=== PATIENT | female | born 1945 | race Two or more races ===

== ENCOUNTER 2020-04-29 18:23 | Inpatient (IN) | payer MEDICAID ==
[~2020-04-29] VITALS: Ht 165.1 cm; Wt 93.9 kg
--- NOTE | 2020-04-29 20:30 | NUR ---
RN OPENING NOTE PT ARRIVED TO UNIT VIA GURNEY ACCOMPANIED WITH 2 [employer] OFFICER. PT IS A/O X4. PT IS AMBULATORY. PT IS ON RM SATING ABOVE 96%. PT HAS UNLABORED BREATHING. SAFETY MEASURES IN PLACE CALL LIGHT IN REACH, BED AT LOWEST POSITION, SIDE RAILS UP X2. WILL CONTINUE TO MONITOR.
[2020-04-29 21:00] VITALS: BP 163/91
[2020-04-29] MEDS ORDERED: ZOLPIDEM TARTRATE 5 MG TABLET PO PRN (22:30)
[2020-04-29] MEDS ORDERED: Z GUARD REMEDY 2 OZ OINT TP PRN (22:30)
[2020-04-29] MEDS ORDERED: ONDANSETRON HCL/PF 4 MG/2 ML VIAL IVP PRN (22:30)
[2020-04-29] MEDS ORDERED: HYDROCODONE/APAP 5/325MG TABLET PO PRN (22:30)
[2020-04-29] MEDS ORDERED: MAGNESIUM HYDROXIDE 30 ML UDC PO PRN (22:30)
[2020-04-29] MEDS ORDERED: MAG HYDROX/AL HYDROX/SIMETH 30 ML UDC PO PRN (22:30)
[2020-04-29] MEDS: IV NS 0.9% 1,000 ML IV PRN (23:50)
[2020-04-30] VITALS: BP 158/82
[2020-04-30] MEDS ORDERED: DEXTROSE 50%-WATER 50 ML DISP.SYRIN IV PRN
[2020-04-30] MEDS ORDERED: *INSULIN REGULAR(HUMULIN R)HUM 100 UNIT/ML VIAL SQ PRN
[2020-04-30] MEDS: ACETAMINOPHEN 325 MG TABLET PO PRN ×3 (00:07→18:00)
[2020-04-30 04:00] VITALS: BP 147/70
--- NOTE | 2020-04-30 05:45 | NUR ---
RN NOTE PT FELL IN THE RESTROOM. PRIOR TO THE FALL, EDUCATED PT WITH RETURNED DEMONSTRATION HOW TO USE THE CALL LIGHT FOR ANY HELP. ENCOURAGED PT TO CALL FOR BATHROOM NEEDS, NON SKID SOCKS WERE ON. FOUND PT LAYING DOWN ON THE FLOOR. FAMILY MEMBER NOTIFIED OF THE INCIDENT. REDNESS PRESENT AT THE LEFT UPPER BACK , PHOTO TAKEN. FALL PRECAUTION PROVIDED. DOCTOR Lennox CALLED AND CT WITHOUT CONTRAST ORDERED.
--- NOTE | 2020-04-30 06:14 | NUR ---
ROCK CRUSHING MACHINE OPERATOR NOTE DR ADDISON INFORMED ABOUT PT'S FALL AND C/O MINOR HEAD PAIN IN THE BACK. MD GAVE NEW ORDER, ORDER NOTED AND CARRIED OUT. ALSO INFORMED NURSING BUS INSPECTOR.
[2020-04-30 06:25] LABS: BASOPHILS % (AUTO) 0.5 % (0.0-2.0); EOSINOPHILS % (AUTO) 0.1 % (0.0-6.0); HEMATOCRIT 42 % (33-45); HEMOGLOBIN 13.7 g/dL (11.5-14.8); LYMPHOCYTES # (AUTO) 1.3 /CMM (0.8-4.8); LYMPHOCYTES % (AUTO) 13.5 % (20.0-44.0); MEAN CORPUSCULAR HGB CONC 33 g/dl (31.0-36.0); MEAN CORPUSCULAR VOLUME 90 fL (82-100); MONOCYTES # (AUTO) 0.7 /CMM (0.1-1.30); MONOCYTES % (AUTO) 7.2 % (2.0-12.0); NEUTROPHILS # (AUTO) 7.8 /CMM (1.8-8.9); NEUTROPHILS % (AUTO) 78.7 % (43.0-81.0); PLATELET COUNT (AUTO) 267 /CMM (150-450); RED BLOOD CELL COUNT(AUTO) 4.71 MIL/uL (4.0-5.2)
[2020-04-30 06:35] LABS: CALCIUM, SERUM 8.6 mg/dL (8.5-10.1); MAGNESIUM 1.8 mg/dL (1.8-2.4); PHOSPHORUS 2.6 mg/dL (2.5-4.9); POTASSIUM 3.5 mmol/L (3.5-5.1)
[2020-04-30 06:40] LABS: THYROID STIMULATING HORMONE 3.143 uIU/mL (0.358-3.74)
--- NOTE | 2020-04-30 07:00 | NUR ---
LEATHER POLISHER NOTE FAMILY INFORMED REGARDING THE PT FALL.
--- NOTE | 2020-04-30 07:25 | NUR ---
RN CLOSING NOTE PT REMAINED STABLE. REPORT GIVEN TO INCOMING SHIFT FOR ONEL.
[2020-04-30] MEDS: BLOOD SUGAR DIAGNOSTIC 1 EACH STRIP VI SCH ×4 (07:30→22:29)
[2020-04-30 08:00] VITALS: BP 145/76
--- NOTE | 2020-04-30 08:00 | NUR ---
patient received in bed skin w/d color good resp unlabored no sob noted vitals taken and recorded iv infusing well with no signs of redness or swelling noted patient encouraged use of call light to make all needs known will continue to assess and evaluate accucheck done and recorded blood sugar 412 coverage given 15 units /sq as ordered will continue to assess and evaluate Dr. Ruano was notified
[2020-04-30] MEDS: ENOXAPARIN SODIUM 40 MG/0.4 ML DISP.SYRIN SQ SCH (08:24)
[2020-04-30] MEDS: INSULIN REGULAR, HUMAN 100 UNIT/ML 3 ML VIAL SQ PRN ×4 (08:39→22:34)
[2020-04-30] MEDS ORDERED: CEFTRIAXONE 1 G in IV D5W 50 ML IV SCH (09:00)
[2020-04-30] MEDS ORDERED: GLYB5TAB7 PO (09:32)
[2020-04-30] MEDS ORDERED: NIFE-35 PO (09:32)
[2020-04-30] MEDS ORDERED: METF-441 PO (09:32)
[2020-04-30] MEDS ORDERED: ASPI-1169 PO (09:32)
[2020-04-30] MEDS ORDERED: CARB200T39 PO (09:32)
--- NOTE | 2020-04-30 09:48 | NUR ---
up to bathroom and voided well and recorded
--- NOTE | 2020-04-30 11:30 | NUR ---
DORIS RN NOTES RECEIVED REPORT FROM CHARGE NURSE SOON. PT IS AWAKE , ALERT AND ORIENTED X3 TURKS AND [place] ISLANDER SPEAKING.ON R/A .PT HAS R HAND #22G IS FLUSHING WEEL, INTACT AND NO INFILTRATION NOTED. COVID TEST IS PENDING. SAFETY MEASUREMENTS ARE IMPLEMENTED. CALL LIGHT WITHIN REACH. WILL CONTINUE TO MONITOR
[2020-04-30 12:00] VITALS: BP 133/80
[2020-04-30 16:00] VITALS: BP 140/82
--- NOTE | 2020-04-30 17:50 | NUR ---
DORIS VAULT MANAGER NOTE PT HAS A FEVER OF 101.3. TYLENOL WAS GIVEN AND COOLING MEASUREMENTS WERE TAKEN. GOING TO RETAKE THE TEM-RE
--- NOTE | 2020-04-30 18:52 | NUR ---
DORIS/ TELE CLOSING RN NOTES PT IS RESTING AND AWAKE , ALERT AND ORIENTED X3 VIETNAMESE SPEAKING.ON R/A SATURATING WELL .PT HAS R HAND #22G IS FLUSHING WELL, INTACT AND NO INFILTRATION NOTED. COVID TEST IS STILL PENDING. NO SIGN OF ACUTE RESPIRATORY DISTRESS IS NOTED. SAFETY MEASUREMENTS ARE IMPLEMENTED. CALL LIGHT WITHIN REACH. WILL ENDORSE TO NIGHTSHIFT MLEODY
--- NOTE | 2020-04-30 19:10 | NUR ---
RN OPENING NOTES: Rec'd pt in bed, A&Ox3, Icelandic speaking only. On room air, O2 WNL. No SOB or resp distress noted. On isolation for R/O Covid. SR on tele monitor. Ambulatory to bedside commode w/ assist. RH #22 patent and flushed. Dressing c/d/i. NS infusing at 75ml/hr, tolerating well. Safety measures in place. Will continue to monitor.
[2020-04-30 20:00] VITALS: BP 127/54
[2020-04-30] MEDS: IV NS 0.9% 1,000 ML IV PRN (20:58)
[2020-04-30] MEDS ORDERED: PIPERACILLIN /TAZOBACTAM 3.375 G in IV D5W 50 ML IV SCH (21:00)
[2020-05-01] VITALS: BP 146/80
--- NOTE | 2020-05-01 | NUR ---
RN NOTE: Pt stated she would like a bed bath at 0600. Wishes noted.
[2020-05-01] MEDS: ACETAMINOPHEN 325 MG TABLET PO PRN ×2 (00:30→20:17)
--- NOTE | 2020-05-01 00:30 | NUR ---
RN NOTE PT HAD A TEMP OF 101.0 GAVE 650 MG PRN PO PER DOCTOR ORDER. WILL CONTINUE TO MONITOR.
[2020-05-01 04:00] VITALS: BP_SYST 154; BP_SYST 157; BP_DIAS 67; BP_DIAS 76
[2020-05-01 04:26] LABS: BASOPHILS # (AUTO) 0.1 /CMM (0.0-0.2); EOSINOPHILS % (AUTO) 0.4 % (0.0-6.0); HEMATOCRIT 40 % (33-45); LYMPHOCYTES # (AUTO) 1.2 /CMM (0.8-4.8); LYMPHOCYTES % (AUTO) 18.3 % (20.0-44.0); MEAN CORPUSCULAR HGB CONC 33 g/dl (31.0-36.0); MEAN CORPUSCULAR VOLUME 89 fL (82-100); MONOCYTES # (AUTO) 0.7 /CMM (0.1-1.30); MONOCYTES % (AUTO) 11.2 % (2.0-12.0); NEUTROPHILS # (AUTO) 4.3 /CMM (1.8-8.9); NEUTROPHILS % (AUTO) 69.1 % (43.0-81.0); PLATELET COUNT (AUTO) 248 /CMM (150-450); RED BLOOD CELL COUNT(AUTO) 4.44 MIL/uL (4.0-5.2); WHITE BLOOD COUNT (AUTO) 6.3 K/uL (4.3-11.0)
[2020-05-01 04:58] LABS: CALCIUM, SERUM 7.8 mg/dL (8.5-10.1); CARBON DIOXIDE 26 mmol/L (21-32); CHLORIDE 101 mmol/L (98-107); CREATININE 1.1 mg/dL (0.6-1.3); GLUCOSE 225 mg/dL (74-106); MAGNESIUM 1.9 mg/dL (1.8-2.4); PHOSPHORUS 3.1 mg/dL (2.5-4.9); POTASSIUM 4.1 mmol/L (3.5-5.1); SODIUM SERUM 138 mmol/L (136-145); UREA NITROGEN, BLOOD 14 mg/dL (7-18)
[2020-05-01] MEDS: PIPERACILLIN /TAZOBACTAM 3.375 G in IV D5W 100 ML IV SCH ×3 (05:13→20:44)
--- NOTE | 2020-05-01 06:40 | NUR ---
RN CLOSING NOTE PT CURRENTLY ASLEEP, RESTING IN BED. TELE MONITOR PRESENTS SR. VSS. NO SOB OR RESPIRATORY DISTRESS AT THIS TIME. ALBANIAN SPEAKING, GUN BARREL FINISHER USED. BED IS LOCKED IN LOWEST POSITION, BED ALARM ON. CALL LIGHT WITHIN IN BERNADINE. NEEDS ATTENDED. PT ORIGINALLY REQUESTED BED BATH, WENT INTO ROOM PT ASLEEP AT 0600. WILL ENDORSE ONCOMING NURSE FOR CONTINUATION OF CARE.
[2020-05-01 08:00] VITALS: BP 144/76
--- NOTE | 2020-05-01 08:00 | NUR ---
PRESS PULLER NOTE. PATIENT IN BED ALL NEEDS ATTENDED SPEAKS PASHTO , BED IN LOWEST AND LOCKED POSITION, ON RA NO SOB NOTED AT THIS TIME , ON TELE MONITOR SR , RT HAND HL INTACT AND FLUSHED WELL WILL CONT TO MONITOR
[2020-05-01] MEDS: ENOXAPARIN SODIUM 40 MG/0.4 ML DISP.SYRIN SQ SCH (08:23)
[2020-05-01] MEDS: BLOOD SUGAR DIAGNOSTIC 1 EACH STRIP VI SCH ×4 (08:24→22:43)
[2020-05-01] MEDS: INSULIN REGULAR, HUMAN 100 UNIT/ML 3 ML VIAL SQ PRN ×4 (08:25→22:43)
--- NOTE | 2020-05-01 10:06 | NUR ---
SENIOR INSIGHT MANAGER INTERNATIONAL NOTE DR BAIRES AT BEDSIDE SPOKE WITH FAMILY THROUGH PHONE
[2020-05-01] MEDS: IV NS 0.9% 1,000 ML IV PRN ×2 (11:07→20:44)
[2020-05-01 12:00] VITALS: BP 155/76
--- NOTE | 2020-05-01 13:00 | NUR ---
WEAPONS OFFICER [employer]ITY NOTE TRANSFERRED TO ROOM 304 WITH STABLE CONDITION
--- NOTE | 2020-05-01 14:45 | NUR ---
YACHT CAPTAIN NOTE UA COLLECTED ORDERED
[2020-05-01 15:41] LABS: APPEARANCE,URINE CLEAR (CLEAR); BILIRUBIN,URINE NEGATIVE (NEGATIVE); BLOOD, URINE TRACE-INTA Ery/uL (NEGATIVE); COLOR,URINE YELLOW (YELLOW); KETONES,URINE NEGATIVE (NEGATIVE); LEUKOCYTE ESTERASE ,URINE NEGATIVE (NEGATIVE); NITRITE, URINE NEGATIVE (NEGATIVE); PROTEIN,URINE 100 mg/dl (NEGATIVE); UGLUCOSE >=1000 mg/dL (NEGATIVE); UROBILINOGEN,URINE 0.2 EU/dL (0.2)
[2020-05-01 15:52] LABS: BACTERIA,URINE None seen /HPF (None Seen); RBC,URINE 0-2 /HPF (0-2); SQUAMOUS EPITHELIAL CELL,UR Few /HPF (None Seen); WBC,URINE 0-2 /HPF (0-3)
[2020-05-01 16:00] VITALS: BP_SYST 151; BP_SYST 157; BP_DIAS 67
--- NOTE | 2020-05-01 18:29 | NUR ---
AUTOMATION MACHINE BUILDER NOTE HAVING DINNER , ABLE TO EAT SELF , ALL NEEDS ATTENDED
--- NOTE | 2020-05-01 19:35 | NUR ---
TENTMAKER OPEN NOTES PATIENT IS LAYING IN BED. A/O X3. ON RA, NO SOB/ ACUTE RESPIRATORY DISTRESS NOTED. APPEARS COMFORTABLE/ NO COMPLAINTS OF PAIN AT THE MOMENT. BED IS IN LOWEST LOCKED POSITION WITH SIDE RAILS UP X3, SEMI FOWLERS. CALL LIGHT IS WITHIN REACH. WILL CONTINUE TO MONITOR.
[2020-05-01 20:29] VITALS: BP 147/73
[2020-05-02] VITALS: BP 141/63
--- NOTE | 2020-05-02 01:40 | NUR ---
EMERGENCY ROOM PHYSICIAN NOTES ENDORSED REPORT TO LORETO SANTIAGO FOR ONEL
--- NOTE | 2020-05-02 02:00 | NUR ---
RECEIVABLE CLERK NOTE: RECEIVE REPORT FOR HERVE FOR CONTINUATION OF CARE. PATIENT RESTING IN BED, NO ACUTE DISTRESS NOTED. BED LOCKED AND IN LOWEST POSITION, CALL LIGHT IN REACH. WILL CONTINUE TO MONITOR.
[2020-05-02 04:22] VITALS: BP 136/84
[2020-05-02] MEDS: PIPERACILLIN /TAZOBACTAM 3.375 G in IV D5W 100 ML IV SCH (05:10)
--- NOTE | 2020-05-02 06:30 | NUR ---
FILAMENT COIL WINDER NOTE: PATIENT RESTING IN BED, NO ACUTE DISTRESS NOTED. BREATHING EVEN AND UNLABORED, NO SOB NOTED.IV TO RIGHT HAND IN PLACE. BED LOCKED AND IN LOWEST POSITION, CALL LIGHT IN REACH. WILL ENDORSE TO DAY NURSE TO CONTINUE WITH PLAN OF CARE.
[2020-05-02] MEDS: BLOOD SUGAR DIAGNOSTIC 1 EACH STRIP VI SCH (07:25)
[2020-05-02] MEDS: INSULIN REGULAR, HUMAN 100 UNIT/ML 3 ML VIAL SQ PRN (07:26)
--- NOTE | 2020-05-02 07:30 | NUR ---
MS/RN Opening note Patient received from civil clerk. A/O X4, vital signs within normal range, no shortness of breath noted. IV fluids infusing at 75ml/hr, no signs of infiltration seen. Bed in low setting, side rails X3 in upright position, bed alarm switched on as patient is fall risk. Call light within reach, patient aware of how to call for help. Will continue to monitor and ensure safety.
[2020-05-02 07:52] VITALS: BP 137/74
[2020-05-02] MEDS: ACETAMINOPHEN 325 MG TABLET PO PRN (08:12)
[2020-05-02] MEDS: ENOXAPARIN SODIUM 40 MG/0.4 ML DISP.SYRIN SQ SCH (08:19)
--- NOTE | 2020-05-02 09:00 | NUR ---
MS/RN Pain Complaining of pain to back of neck and shoulders. Tylenol 650mg administered, will monitor effectiveness.
--- NOTE | 2020-05-02 11:36 | NUR ---
MS/RN AMA Patient left AMA at 1130 Call received from patient's daughter at 1045, stating that she would like for her mother to be released from the hospital. Explained to her that Dr Raza had already made rounds and that there was no discharge order for today, instead discharge planning for tomorrow. Daughter upset that she had not been given any updates as to her mothers condition, and that she had been asking since admission on 04/29 to speak with the doctor but as of yet had not heard or received any calls. Also stating that they were unhappy with care received by their mother, stating that no one was answering her call light, helping her with ADL'S or changing linens, and unhappy that their mother had been assisted to walk to the bathroom. Stated that they were also unhappy that all of the nurses assigned to her mother did not speak Maldivian. Explained to her that even though I did not speak Maldivian, there was always someone available to translate, or the senior informatica developer phone would be used. Explained that the reason her mother was assisted with ambulating this morning to bathroom was to prevent deconditioning as lying in bed for several days without walking when she was used to walking was not good for her. Explained that if she wanted to leave today, then it would be against medical advice and as a family they would resume any responsibility if something were to happen, daughter stated understanding and still wanting mother to leave. Encouraged to make follow up appointment with primary care doctor as soon as possible to obtain prescription for oral antibiotics to enable the entire course of medication to be completed, again expressed understanding. All personal belongings accounted for and signed for on belongings list. Assisted to dress, heplock, name bands and tele removed. Provided with copy of urine culture preliminary results and UA. Given telephone number to call medical records in one to two days time to obtain final culture results. Authorization to release medical reocrds form singed by patient along with AMA paper and exit care. Escorted to main lobby by MARKY, daughter to pickling tank operator patient.
== END 2020-05-02 11:30 | disposition left against medical advice (07) | DRG 720 ==
LOC: TELE1 20:33 → ICU 04-30 18:45 → TELE 05-01 13:10
PROVIDERS: ADMIT Student in an Organized Health Care Education/Training Program; ATTEND Internal Medicine
DX: A41.9 Sepsis, unspecified organism (principal); E87.1 Hypo-osmolality and hyponatremia; I10 Essential (primary) hypertension; E78.5 Hyperlipidemia, unspecified; E86.1 Hypovolemia; E11.00 Type 2 diabetes mellitus with hyperosmolarity without nonketotic hyperglycemic-hyperosmolar coma (NKHHC); E11.65 Type 2 diabetes mellitus with hyperglycemia; N39.0 Urinary tract infection, site not specified; J01.90 Acute sinusitis, unspecified; Z66 Do not resuscitate; E66.9 Obesity, unspecified; Z68.34 Body mass index [BMI] 34.0-34.9, adult
CPT/HCPCS: 36415; 70450-TC; 71045-TC; 80048-TC; 80061-TC; 81000-TC; 82962-TC; 83735-TC; 84100-TC; 84443-TC; 85025-TC; 87040-TC; 87081-TC; 87086-TC; G0378; J0696; J1650; J1815; J2543; J7030; J7042; J7060; U0003-CS